=== PATIENT | male | born 1960 | race Caucasian/White ===

== ENCOUNTER 2017-10-20 12:34 | Inpatient (IN) | payer OTHER ==
[~2017-10-20] VITALS: Ht 180.3 cm; Wt 94.3 kg
[~2017-10-20 12:34] MED LIST: ALPRAZOLAM0.5 M4 PO; ANTIVERT25 MG PO; CARDIZEM CD120 MG PO
--- NOTE | 2017-10-20 12:45 | ED CARDIAC/CP/PALPITATIONS ---
History of Present Illness General Chief Complaint: Chest Pain Stated Complaint: CP Source: patient Exam Limitations: no limitations Vital Signs & Intake/Output Vital Signs & Intake/Output Vital Signs Date Time Temp Pulse Resp B/P B/P Pulse O2 O2 Flow FiO2 Mean Ox Delivery Rate 10/20 1420 72 118/69 10/20 1350 98.9 82 18 122/71 95 Room Air 10/20 1300 99.0 10/20 1247 72 24 120/74 95 Room Air Allergies Coded Allergies: NO KNOWN ALLERGIES (11/26/15) NKA PER ANITBIOTIC ORDER SHEET -SJS Reconcile Medications No Known Home Medications Triage Nurses Notes Reviewed? yes Onset: Gradual Duration: better Timing: single episode today Radiation: back HPI: Patient is a 57-year-old male with an unremarkable past medical history presents emergency room saying that last night he was in his normal state of health this morning patient was woke up with mild nausea nausea and which she did eat a half a bagel prior to going to work patient states that while at work symptoms still persisted where he felt cold and clammy patient states that he drank a seltzer water and had acute onset approximately 15 minutes later of substernal chest and throat burning sensation patient then subsequently had chest tightness with intermittent back pain described as "shock" symptoms patient took Tums prior to arrival with no relief of symptoms, patient states that currently the chest tightness is gone however is still complaining of throat and substernal burning sensation Patient denies any alcohol or tobacco use or illicit drug use Denies any fever chills cough hemoptysis leg swelling shortness of breath or arm pain jaw pain history of DVT or PE Patient does have a family history of cardiac disease (Girma Catalan) Past History Medical History Any Pertinent Medical History? see below for history Neurological: PARESTHESIA Psychiatric: anxiety Endocrine: BORDERLINE DIABETIC Surgical History Surgical History: N Psychosocial History What is your primary language Prydeinig Family History Hx Contributory? No (Girma Catalan) Review of Systems Review of Systems Constitutional: Reports: no symptoms. EENTM: Reports: no symptoms. Respiratory: Reports: see HPI. Cardiovascular: Reports: see HPI. GI: Reports: see HPI, nausea. Genitourinary: Reports: no symptoms. Musculoskeletal: Reports: no symptoms. Skin: Reports: no symptoms. Neurological/Psychological: Reports: no symptoms. Hematologic/Endocrine: Reports: no symptoms. Immunologic/Allergic: Reports: no symptoms. All Other Systems: Reviewed and Negative (Girma Catalan) Physical Exam Physical Exam General Appearance: no apparent distress, alert, comfortable Head: atraumatic Eyes: Bilateral: normal appearance, PERRL. Ears, Nose, Throat: normal pharynx, normal ENT inspection Neck: normal inspection Respiratory: normal breath sounds, chest non-tender, no respiratory distress Cardiovascular: regular rate/rhythm Peripheral Pulses: 2+ radial (R) Gastrointestinal: normal bowel sounds, soft, non-tender Extremities: normal inspection, normal capillary refill Skin: intact, normal color, warm/dry Core Measures ACS in differential dx? Yes CVA/TIA Diagnosis No Sepsis Present: No Sepsis Focused Exam Completed? No (Girma Catalan) Progress Differential Diagnosis: AMI, aortic dissection, atrial fibrillation, cholecystitis, CHF/pulm edema, costochondritis, hyperkalemia, hypovolemia, hyperthyroid, hyperventilation, intracranial hemorrhage, musculoskeletal pain, myocarditis, pancreatitis, pericarditis, pneumonia, pneumothorax, PSVT, pulmonary embolism, PUD/GERD, PVCs/PACs, respiratory failure, sepsis, unstable angina, V-fib/V-Tach, WPW syndrome Plan of Care: Orders Procedure Date/time Status Heart Healthy Diet 10/20 D Active Patient Data 10/20 1543 Active ED Holding Orders 10/20 1542 Active Admit to inpatient 10/20 1542 Active Vital Signs 10/20 1542 Active Code Status 10/20 1542 Active Add-on Test (ER Only) 10/20 1353 Active D-DIMER 10/20 1248 Complete TROPONIN LEVEL 10/20 1245 Complete PARTIAL THROMBOPLASTIN TIME 10/20 1245 Complete PROTHROMBIN TIME 10/20 1245 Complete LACTIC ACID 10/20 1245 Complete D-DIMER 10/20 1245 Complete COMPREHENSIVE METABOLIC PANEL 10/20 1245 Complete CBC WITHOUT DIFFERENTIAL 10/20 1245 Complete TYPE & SCREEN (NOT X-MATCH) 10/20 1245 Complete EKG 10/20 1235 Active Current Medications Sig/Lucas Start time Last Medication Dose Stop Time Status Admin Omeprazole 20 MG DAILY AC 10/20 1631 UNVr 10/20 (Prilosec) 1640 Nitroglycerin 0.4 MG ONCE ONE 10/20 1415 CAN (Nitrostat) 10/20 1416 Laboratory Tests 10/20/17 1545: Lactic Acid Cancelled 10/20/17 1351: D-Dimer High Sensitivty < 200 10/20/17 1245: Anion Gap 14, Estimated GFR > 60, BUN/Creatinine Ratio 22.9, Glucose 111 H, Lactic Acid 1.1, Calcium 9.8, Total Bilirubin 1.0, AST 21, ALT 34, Alkaline Phosphatase 98, Troponin I < 0.01, Total Protein 7.9, Albumin 4.7, Globulin 3.2, Albumin/Globulin Ratio 1.5, PT 11.1, INR 1.02, APTT 30, D-Dimer High Sensitivty < 200, CBC w Diff MAN DIFF ORDERED, RBC 5.18, MCV 86.4, MCH 30.0, MCHC 34.8, RDW 12.6, MPV 9.0, Gran % 86.5 H, Lymphocytes % 9.7 L, Monocytes % 3.6, Eosinophils % 0.1, Basophils % 0.1, Absolute Granulocytes 10.1 H, Absolute Lymphocytes 1.1 L, Absolute Monocytes 0.4, Absolute Eosinophils 0, Absolute Basophils 0, Platelet Estimate ADEQUATE, Normocytic RBCs VERIFIED, Normochromic RBCs VERIFIED Initial examination patient is resting comfortably at bedside EKG indicates status and 73 bpm leather lacer placed patient was prophylactically administered aspirin due to presentation of chest pain due to onset of substernal esophageal and chest burning sensation after drinking seltzer water GI cocktail was first given which he had no change in symptoms 1353 nitroglycerin was administered and will be reevaluated Nitroglycerin was administered patient states that his symptoms were worsened nitroglycerin ointment was GIVEN After nitroglycerin was administered patient did have improvement of his symptoms however still complaining of 4/10 substernal chest burning pain Dr. Knox discussed patient with Dr. Wright who advised patient to be admitted for concerns of angina Discussed admission with patient who is aware Diagnostic Imaging: Viewed by Me: Radiology Read. CXR Impression: no acute abnormality, no infiltrates Initial ED EKG: normal p-waves, normal QRS complex, normal sinus rhythm, 73 BPM, NSR Comments: PATIENT: ADDIE COTTON PRESENT AGE: 57 PATIENT ACCOUNT NO: [id number] : 58 LOCATION: ER ORDERING PHYSICIAN: Girma BEAVERS SERVICE DATE: 10/20/17 EXAM TYPE: RAD - XRY-CHEST XRAY, TWO VIEWS EXAMINATION: CHEST 2 VIEWS CLINICAL INFORMATION: Chest pain. COMPARISON: 11/01/2014. TECHNIQUE: PA and lateral views of the chest were obtained. FINDINGS: The cardiac silhouette is not enlarged. The mediastinal and hilar contours are unremarkable. There are neither pleural effusions nor pneumothoraces. There are no consolidations. The osseous structures are unremarkable. IMPRESSION: No evidence for acute disease. DICTATED BY: Kimo Palma MD DATE/TIME DICTATED:10/20/171519 SENIOR TREASURY ANALYST:AKIL DATE/TIME TRANSCRIBED:10/20/171519 CONFIDENTIAL, DO NOT COPY WITHOUT APPROPRIATE AUTHORIZATION. <Electronically signed in Other Vendor System> SIGNED BY: Kimo Palma MD 10/20/171523 (Girma Catalan) Departure Departure Disposition: STILL A PATIENT Condition: Stable Clinical Impression Primary Impression: Angina at rest Referrals: Omer Figueroa MD (PCP/Family) Departure Forms: Customer Survey General Discharge Information Prescriptions: Current Visit Scripts No Known Home Medications Admission Note Spoke With: Augusto Sparrow MD Documentation of Exam: Documentation of any treatments & extenuating circumstances including Concerns Regarding Discharge (functional status, medication knowledge or non-compliance, living conditions, etc.) that warrant an admission rather than observation: [ Patient requires admission for concerns of persistent angina unrelieved with nitroglycerin patient requires repeat EKG blood work troponin cardiology consultation and telemetry monitoring] (Girma Catalan) PA/ROSS FURNACE OPERATOR Co-Sign Statement Statement: ED Attending supervision documentation- [X] I saw and evaluated the patient. I have also reviewed all the pertinent lab results and diagnostic results. I agree with the findings and the plan of care as documented in the PA's/ROSS FURNACE OPERATOR's documentation. [X] I have reviewed the ED Record and agree with the PA's/ROSS FURNACE OPERATOR's documentation. [] Additions or exceptions (if any) to the PAs/ROSS FURNACE OPERATOR's note and plan are summarized below: [ADMIT FOR TELE, SEIRAL ENZYMES,CARDIOLOGY CONSULTATION] (Abilio CEVALLOS,Narciso Adam) Critical Care Note Critical Care Note Critical Care Time: 30-74 min (Girma Catalan)
[2017-10-20 12:56] LABS: ABSOLUTE BASOPHIL COUNT 0 /CUMM (0.0-0.2); ABSOLUTE EOSINOPHIL COUNT 0 /CUMM (0.0-0.7); ABSOLUTE GRANULOCYTE CT 10.1 /CUMM (1.4-6.5); ABSOLUTE LYMPH COUNT 1.1 /CUMM (1.2-3.4); ABSOLUTE MONOCYTE COUNT 0.4 /CUMM (0.10-0.60); BASOPHIL % 0.1 % (0.0-2.0); EOSINOPHIL % 0.1 % (0-5); HEMATOCRIT 44.8 % (42-52); MEAN CORPUSCULAR HGB CONC 34.8 G/DL (33.0-37.0); MEAN CORPUSCULAR VOLUME 86.4 FL (80.0-94.0); PLATELET COUNT 227 /CUMM (130-400); RBC DISTRIBUTION WIDTH 12.6 % (11.5-14.5); RED BLOOD CELL CT 5.18 /CUMM (4.70-6.10); WHITE BLOOD CELL COUNT 11.7 /CUMM (4.8-10.8)
[2017-10-20 12:59] LABS: GRANULOCYTE % 86.5 % (42.2-75.2)
[2017-10-20 13:04] LABS: PT 11.1 SEC (9.4-12.5); PTT 30 SEC (25-37)
--- NOTE | 2017-10-20 15:24 | RADIOLOGY REPORT ---
EXAMINATION: CHEST 2 VIEWS CLINICAL INFORMATION: Chest pain. COMPARISON: 11/01/2014. TECHNIQUE: PA and lateral views of the chest were obtained. FINDINGS: The cardiac silhouette is not enlarged. The mediastinal and hilar contours are unremarkable. There are neither pleural effusions nor pneumothoraces. There are no consolidations. The osseous structures are unremarkable. IMPRESSION: No evidence for acute disease.
--- NOTE | 2017-10-20 15:50 | History & Physical ---
JorgeExline 10/20/17 1549: General Information and HPI MD Statement: I have seen and personally examined ADDIE COTTON and documented this H&P. The patient is a 57 year old M who presented with a patient stated chief complaint of chest discomfort, nausea and sweating since this morning. []. Source of Information: patient, old records Exam Limitations: no limitations History of Present Illness: 57 YO M with PMH of acid reflex, anxiety, paresthesia, prediabetic not on any medication, osteoarthritis, left knee meniscal tear status post repair and colonoscopy in 2007 for rectal bleeding came to ED with chief complaint of chest discomfort, nausea and sweating since this morning. Patient reported that he was in his usual state of health since this morning when he woke up he noticed nausea and sweating. According to patient he took the shower and went to his work where he drank seltzer water and he noticed retrosternal burning sensation that's coming to his throat. He took 2 tums but that didn't relieve his burning sensation. Later on patient noticed tightness around his lower chest and also shooting pain around his neck. That tightness was 5/10, nonradiating, intermittent, not aggravated with exertion and relieved a little bit with rest. Patient also noticed having nausea along with this lower chest tightness. Patient decided to leave his work and came to ED for further evaluation. Patient denied any central chest pain, shortness of breath, palpitation, increase in chest tightness with breathing, recent upper respiratory tract infection, lightheadedness, vomiting, abdominal pain, diarrhea and dysuria. Patient also noticed having bloating sensation in his belly. Patient reported that he ate hot dogs and fried chips last night before he slept. Patient reported that similar episode he noticed 3 years back and he took Tums at that time and that relieved his burning sensation. Patient also endorsed that he had episode of palpitation 2 years back and since then he is seeing Dr. Wright. He had 24-hour Holter monitor but nothing was diagnosed at that point. He also had stress test in 2015 that was negative. Last time he saw Dr. Wright in January 2017. Patient is also seeing Dr. Arias for paresthesia around his face and in the hands. Patient attributed this paresthesia to anxiety. According to patient he received nitroglycerin tablet in ED that worsened his retrosternal burning sensation. ED course: Vitals: Temperature 99.0, pulse 72, respiratory rate 24, blood pressure 120/74, oxygen saturation 95% room air. Labs: WBC count 11.7, hemoglobin 15.6, hematocrit 44.8, platelet count 227, sodium 139, potassium 4.3, BUN 16, creatinine 0.7, anion gap 14, BUNs/creatinine ratio 22.9, troponin less than 0.01, albumin 4.7, globulin 3.2, PT 11.1, INR 1.02, d-dimer less than 200 Patient received aspirin in ED also nitroglycerin patch and pill. He also received GI cocktail. Allergies/Medications Allergies: Coded Allergies: NO KNOWN ALLERGIES (11/26/15) NKA PER ANITBIOTIC ORDER SHEET -SJS Past History Travel History Traveled to [place] past 21 day No Medical History Neurological: PARESTHESIA EENT: NONE Cardiovascular: NONE Respiratory: NONE Gastrointestinal: NONE Hepatic: NONE Renal: NONE Musculoskeletal: NONE Psychiatric: anxiety Endocrine: BORDERLINE DIABETIC Surgical History Surgical History: N Review of Systems Review of Systems Constitutional: Reports: no symptoms. EENTM: Reports: no symptoms. Cardiovascular: Reports: see HPI. Respiratory: Denies: cough, orthopnea, short of breath, sputum production. GI: Denies: bloating, nausea. Genitourinary: Denies: dysuria, hematuria. Musculoskeletal: Reports: see HPI. Neurological/Psychological: Reports: no symptoms. Exam & Diagnostic Data Last 24 Hrs of Vital Signs/I&O Vital Signs Date Time Temp Pulse Resp B/P B/P Pulse O2 O2 Flow FiO2 Mean Ox Delivery Rate 10/20 1420 72 118/69 / 1350 98.9 82 18 122/71 95 Room Air 04/ 1300 99.0 04/ 1247 72 24 120/74 95 Room Air Intake & Output 10/20 1600 10/20 0800 04/ 0000 Intake Total 10 Output Total Balance 10 Intake, IV 10 Patient 212 lb Weight Weight Reported by Patient Measurement Method Physical Exam General Appearance Alert, Oriented X3, Cooperative, No Acute Distress Skin No Rashes Skin Temp/Moisture Exam: Warm/Dry Sepsis Skin Exam (color): Normal for Ethnicity HEENT Atraumatic, PERRLA, EOMI Neck Supple Cardiovascular Normal S1, Normal S2 Lungs Clear to Auscultation Abdomen Soft, No Tenderness Neurological Normal Speech, Strength at 5/5 X4 Ext, Normal Tone, Sensation Intact Extremities No Edema Last 24 Hrs of Labs/Froylan: Laboratory Tests 10/20/17 1545: Lactic Acid Cancelled 10/20/17 1351: D-Dimer High Sensitivty < 200 10/20/17 1245: Anion Gap 14, Estimated GFR > 60, BUN/Creatinine Ratio 22.9, Glucose 111 H, Lactic Acid 1.1, Calcium 9.8, Total Bilirubin 1.0, AST 21, ALT 34, Alkaline Phosphatase 98, Troponin I < 0.01, Total Protein 7.9, Albumin 4.7, Globulin 3.2, Albumin/Globulin Ratio 1.5, PT 11.1, INR 1.02, APTT 30, D-Dimer High Sensitivty < 200, CBC w Diff MAN DIFF ORDERED, RBC 5.18, MCV 86.4, MCH 30.0, MCHC 34.8, RDW 12.6, MPV 9.0, Gran % 86.5 H, Lymphocytes % 9.7 L, Monocytes % 3.6, Eosinophils % 0.1, Basophils % 0.1, Absolute Granulocytes 10.1 H, Absolute Lymphocytes 1.1 L, Absolute Monocytes 0.4, Absolute Eosinophils 0, Absolute Basophils 0, Platelet Estimate ADEQUATE, Normocytic RBCs VERIFIED, Normochromic RBCs VERIFIED Assessment/Plan Assessment: 57 YO M with PMH of acid reflex, anxiety, paresthesia, prediabetic not on any medication, osteoarthritis, left knee meniscal tear status post repair and colonoscopy in 2007 for rectal bleeding came to ED with chief complaint of chest discomfort, nausea and sweating since this morning. We'll admit the patient on telemetry floor to rule out any ischemic cardiac injury. Chest pain: -Patient has atypical chest pain symptoms but considering his significant family history we will keep the patient on telemetry floor to rule out any ischemic cardiac injury. -Serial EKG and troponins -Cardiac consult -We will start aspirin -We will start Lipitor -Lipid panel -Echocardiogram in a.m. GERD: -Considering patient's symptoms it's more related to acid reflux as patient has past medical history. -We will start omeprazole -Elevation of the head end of the bed -Avoid spicy and fatty food. Leukocytosis: -Likely reactive -we will follow cbc in am. History of prediabetes: -HbA1c History of anxiety: -Not on any medication DVT prophylaxis: Mechanical and subcutaneous Lovenox CODE STATUS: Full code As Ranked By This Provider Problem List: 1. Chest pain Core Measures/Misc (04/03) Acute Coronary Syndrome ACS Diagnosis: No Congestive Heart Failure Congestive Heart Failure Diagnosis No Cerebrovascular Accident CVA/TIA Diagnosis: No VTE (View Protocol) VTE Risk Factors Age>40 No Mechanical VTE Prophylaxis d/t N/A MechProphylax Ordered No VTE Pharm Prophylaxis d/t NA PharmProphylax ordered Sepsis (View protocol) Sepsis Present: No [facility] 1720: General Information and HPI Allergies/Medications Home Med list Omeprazole 20 MG CAPSULE.DR Razo CAP PO DAILY GERD Resident Review Statement Resident Statement: examined this patient, discussed with application internship, agreed with application internship, discussed with family Other Findings: Mr. Cotton is a 57-year-old male with past medical history significant for borderline diabetes not on any medication, anxiety associated with episodic paresthesia was at some point on Xanax, who presented to ED with chief complaint of burning chest pain for 1 day. Patient reported that after working up this morning he feels nauseated but no vomiting, and went to work and had some seltzer water. After drinking that he started to have burning sensation in his chest associated with bilateral lower rib tightness not associated with shortness of breath, palpitation, pressure or sharp chest pain, no nausea or vomiting. Patient reported having similar burdening chest pain in the past that improved with Tums however this time he tried times without any relieving of his symptoms. In 2016 patient had episodic palpitation and had a follow-up with Dr. Wright, reported having Holter monitor, nuclear stress test and echocardiogram with negative results. Patient got anxious today because of the bilateral lower chest tightness and decided to come to ED for evaluation given the fact that has positive family history of HI. Patient reported having fried food last night. Initial troponin negative, EKG CT interval 204, QTc 401, single mild ST depression in lead V4 . Problem list #Chest burning sensation #GERD #Anxiety Plan -Admit to telemetry floor -Tropes and EKG 2 -Vital signs every shift -Protonix 20 mg before meals daily -CBC and BEP in a.m. -Cardiology evaluation -DVT prophylaxis Lovenox -Diet regular -Code full
--- NOTE | 2017-10-20 17:24 | Cons- Cardiology ---
General Information and HPI Consulting Request Date of Consult: 10/20/17 Requested By: Augusto Sparrow MD History of Present Illness: Herb is a 57 year old male with a family history of coronary artery disease. He is at least moderately active and at his baseline he is active is free of any chest pain, pressure, tightness, shortness of breath or lightheadedness. This morning, the patient noted nausea followed by diaphoresis. He subsequently felt a midsternal burning sensation along with discomfort bilaterally in his lower chest. The discomfort radiated to his back. The discomfort is now in his upper mid chest at the base of his throat.There is no clear relief by NTG. Otherwise he denies shortness of breath, lightheadedness or palpitations. To review this patient's prior history, Herb has noted some minor palpitations for about eight years but they typically only occured on rare occasion. A couple visits ago he reported having much more prominent palpitations but they seem to have almost completely abated. He previously complained of fleeting discomfort in a variety of different areas such as his foot to his face. Neurology has not been able to discover a reason for these symptoms. In may be recalled that when this patient had his prior palpitationsthey were described as intermittent, palpitations that were associated with mild shortness of breath and lightheadedness. They tend to be short runs that are associated with neck pulsation and are described as being fast and even. He did have resolution soon after drinking a glass of water. He had an echocardiogram that showed a normal EF of 67% with moderate aortic regurgitation, mild to moderate pulmonic regurgitation and borderline LVH. His stress test is negative for ischemia. Allergies/Medications Allergies: Coded Allergies: NO KNOWN ALLERGIES (11/26/15) NKA PER ANITBIOTIC ORDER SHEET -[facility] Home Med List: No Known Home Medications Review of Systems Review of Systems: A review of systems is unremarkable. Past History Travel History Traveled to [place] past 21 day No Medical History Neurological: PARESTHESIA EENT: NONE Cardiovascular: NONE Respiratory: NONE Gastrointestinal: NONE Hepatic: NONE Renal: NONE Musculoskeletal: NONE Psychiatric: anxiety Endocrine: BORDERLINE DIABETIC Surgical History Surgical History: none Exam & Diagnostic Data Vital Signs and I&O Vital Signs Date Time Temp Pulse Resp B/P B/P Pulse O2 O2 Flow FiO2 Mean Ox Delivery Rate 10/20 2033 98.6 65 20 110/50 95 Room Air 1808 95 Room Air / 1736 99.6 10/20 1714 99.6 84 18 112/67 95 Room Air 04/ 1420 72 118/69 04/05 1350 98.9 82 18 122/71 95 Room Air 04/05 1300 99.0 / 1247 72 24 120/74 95 Room Air Intake & Output 10/20 1600 10/20 0800 10/20 0000 10/19 1600 10/19 0800 10/19 0000 Intake Total 10 Output Total Balance 10 Intake, IV 10 Patient 212 lb Weight Weight Reported by Patient Measurement Method Physical Exam: General: WD/WN male in NAD; alert and oriented x3 HEENT: NC//AT, PERRL, EOMI Neck: no JVD, no carotid bruits Heart: RRR w/o murmur Lungs: clear bilaterally Abdomen: soft, NT, +ve bowel sounds Extremities: no edema Assessment/Plan Assessment/Plan * This patient has chest discomfort that is atypical in location without any exacerbation by physical exertion or convincing relief by NTG. We will monitor him on telelmetry and will rule him out for an SD. If he has recurrent chest pain then we will begin IV heparin and will add NTG paste 1/2 in Q 6 hours. If the patient rules out and is pain free then we will discharge with a plan for outpatient stress testing. If his chest discomfort persists then stress testing will be done as an inpatient. * Repeat the patient's CBC. * Continue usual home medications. Consult Acknowledgment - Thank you for your consult request.
--- NOTE | 2017-10-20 17:29 | PN- Att Addend ---
Attending Addendum Attending Brief Note Patient seen and examined. Pleasant 57-year-old male with no significant medical history. Presents to the emergency room complaining of retrosternal discomfort which she describes as burning sensation. Also treated with symptoms of bilateral lower chest wall pain. Symptoms began suddenly this morning. Did not but after taking Tums. Acute emergency room for further evaluation with symptoms persisted despite nitroglycerin and PPI therapy. EKG showed normal sinus rhythm with no obvious ischemic changes. His first troponin Was negative. Patient reports family history of coronary artery disease wasreferred to the medical service for further evaluation and management. On examination is resting comfortably multivitamin acute distress. Chest pain is not reproducible. Heart sounds are regular. Lungs are clear bilaterally. Patient reports similar pain in the past that improved with the use of Tums. He admits to having a heavy meal last night. He describes sensation as a burning sensation. Problems: 1. Chest pain; likely related to GERD. Recommendations: -Trend cardiac enzymes. -Obtain echocardiogram to rule out any wall motion abnormality. -Patient had a nuclear stress test 3 years ago for similar complaints that was negative. 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 -Cardiac enzymes are negative and following evaluation by his elevator operator freight service tomorrow he may be discharged home with recommendations to follow with the gastroenterology service in 2 weeks if symptoms persist despite PPI therapy. -He is leukocytosis is likely reactive. Repeat CBC in a.m.
[2017-10-20 20:34] VITALS: BP 110/50
[2017-10-20 23:50] VITALS: BP 104/56
[2017-10-21 06:32] VITALS: BP 122/62
--- NOTE | 2017-10-21 06:43 | PN- Housestaff ---
[facility] Subjective Follow-up For: Atypical chest pain GERD Tele-Events Since Last Visit: Sinus rhythm with heart rate 6591 Subjective: Patient remained afebrile overnight. Seen and examined this morning. Denied any chest pain, short of breath, nausea, vomiting, chills, fever, abdominal pain and dysuria. Patient reported having acid reflux last night and it was relieved with TUMS. Review of Systems Constitutional: Denies: chills, fever, weakness. EENTM: Reports: no symptoms. Cardiovascular: Denies: chest pain, orthopena, palpitations. Respiratory: Denies: cough, short of breath. Gastrointestinal: Denies: bloating, diarrhea, nausea. Genitourinary: Reports: no symptoms. Musculoskeletal: Reports: no symptoms. Neurological/Psychological: Reports: no symptoms. Objective Last 24 Hrs of Vital Signs/I&O Vital Signs Date Time Temp Pulse Resp B/P B/P Pulse O2 O2 Flow FiO2 Mean Ox Delivery Rate 10/21 0632 98.6 64 20 122/62 95 Room Air 04/05 2350 98.2 67 12 104/56 94 Room Air 04/05 2034 98.6 65 20 110/50 95 Room Air 04/05 1808 95 Room Air 04/05 1736 99.6 04/05 1714 99.6 84 18 112/67 95 Room Air 04/05 1420 72 118/69 04/05 1350 98.9 82 18 122/71 95 Room Air 04/05 1300 99.0 04/05 1247 72 24 120/74 95 Room Air Intake & Output / 1600 /06 0800 04/06 0000 Intake Total 110 320 Output Total 500 Balance -390 320 Intake, Oral 110 320 Output, Urine 500 Patient 208 lb Weight Weight Bed scale Measurement Method Physical Exam General Appearance: Alert, Oriented X3, Cooperative Skin: No Rashes Skin Temp/Moisture Exam: Warm/Dry Sepsis Skin Exam (color): Normal for Ethnicity HEENT: Atraumatic, PERRLA, EOMI Neck: Supple Cardiovascular: Normal S1, Normal S2 Lungs: Clear to Auscultation Abdomen: Soft, No Tenderness Neurological: Normal Speech, Strength at 5/5 X4 Ext, Normal Tone, Sensation Intact Extremities: No Edema Assessment/Plan Assessment: 57 YO M with PMH of acid reflex, anxiety, paresthesia, prediabetic not on any medication, osteoarthritis, left knee meniscal tear status post repair and colonoscopy in 2007 for rectal bleeding came to ED with chief complaint of chest discomfort, nausea and sweating since this morning. We are following the patient on telemetry floor for following problems: Atypical Chest pain: -Patient has atypical chest pain symptoms but considering his significant family history we will keep the patient on telemetry floor to rule out any ischemic cardiac injury. -EKGs and trops are Negative -Cardiology will follow the patient as outpatient for stress test. -Echocardiogram in a.m. GERD: -Considering patient's symptoms it's more related to acid reflux as patient has past medical history. -We will start omeprazole -Elevation of the head end of the bed -Avoid spicy and fatty food. Leukocytosis: -Likely reactive -We'll see count is back to normal History of prediabetes: -HbA1c 5.9 History of anxiety: -Not on any medication DVT prophylaxis: Mechanical and subcutaneous Lovenox CODE STATUS: Full code Problem List: 1. Chest pain Pain Ratin Pain Location: none Pain Goal: Remain pain free Pain Plan: pain pathway Tomorrow's Labs & Rationales: none Juan José Smiley MD 10/21/17 1116: Attending MD Review Statement Attending Statement Attending MD Statement: examined this patient, discuss w/resident/PA/[employer], agreed w/resident/PA/[employer], reviewed EMR data (avail) Attending Assessment/Plan: Symptoms have resolved. Yesterday felt epigastric and rib discomfort, but has had no symptoms since. EKG and troponin are negative. Seen by cardiology. Patient is stable for discharge home on Omeprazole with outpatient cardiology follow up.
[2017-10-21 08:05] LABS: ABSOLUTE BASOPHIL COUNT 0 /CUMM (0.0-0.2); ABSOLUTE EOSINOPHIL COUNT 0 /CUMM (0.0-0.7); ABSOLUTE LYMPH COUNT 1.3 /CUMM (1.2-3.4); ABSOLUTE MONOCYTE COUNT 0.5 /CUMM (0.10-0.60); BASOPHIL % 0.2 % (0.0-2.0); EOSINOPHIL % 0.7 % (0-5); HEMATOCRIT 40.9 % (42-52); MEAN CORPUSCULAR HGB 30.5 PG (27.0-31.0); MEAN CORPUSCULAR HGB CONC 34.6 G/DL (33.0-37.0); MEAN CORPUSCULAR VOLUME 88.1 FL (80.0-94.0); PLATELET COUNT 195 /CUMM (130-400); RED BLOOD CELL CT 4.64 /CUMM (4.70-6.10); WHITE BLOOD CELL COUNT 5.9 /CUMM (4.8-10.8)
--- NOTE | 2017-10-21 08:52 | PN- Student ---
Subjective Subjective: 57 y/o M with PMHx of acid reflux, anxiey, paresthesia, prediabetic (without any medication), left knee meniscal tear s/p repair and colonoscopy in 2007 for rectal bleeding. Patient presented to the ED with a chief complain of chest discomfort. Patient was in his usual state of health until the morning [employer], when the wake up with nausea. During the day, the nausea resolved but in the way to the work he experienced chest discomfort, located on the middle of the chest with duration between 10 -15 minutes and described as burning sensation and "huggin like pressure in my rib cage". Patient reported radiation to the left shoulder, severity of 5/10, and associated symptoms of nausea without agraviation of the pain with excertion. Denied fever, vomiting, diarrhea, SOB, metalic taste in the mouth. During the ED workup he received nitroglycerin tablets which didnot resolved the pain and made it worse. Also, during the day patient noticed bloating sensation and passing more gasses than usual. The night before the onser of the pain he ate hotdogs and chips before bedtime. He has experienced this pain befor and had resolved with antiacids medicationn but has never expirienced shouldr pain. This time the antiacid medication did not resolved the pain. patient is been seen by Dr. Wright for card eval and workup. Last time seen in January 2017. Objective Objective: Vitals: t= 98.9 HR= 72 BP= 118/69 O2 Sat= 95 PE: General= alert, oriented x3, without any distress HEET= no lymphadenopathy, no ulcers in the mouth, good dental ingine Lungs: clean bilateral, no added sounds CVS= regular rate rythm, no murmurs S3 or S4 Abdomen= no scar discolorations or hernias visible. Present bowel sounds. No tender, non distender, no masses. Results Results: Laboratory Tests 10/21/17 0655: Anion Gap 10, Estimated GFR > 60, BUN/Creatinine Ratio 22.9, CBC w Diff NO MAN DIFF REQ, RBC 4.64 L, MCV 88.1, MCH 30.5, MCHC 34.6, RDW 13.0, MPV 9.0, Gran % 68.0, Lymphocytes % 21.8, Monocytes % 9.3, Eosinophils % 0.7, Basophils % 0.2, Absolute Granulocytes 4.0, Absolute Lymphocytes 1.3, Absolute Monocytes 0.5, Absolute Eosinophils 0, Absolute Basophils 0 10/20/17 1934: Troponin I < 0.01 10/20/17 1545: Lactic Acid Cancelled 10/20/17 1351: D-Dimer High Sensitivty < 200 10/20/17 1245: Anion Gap 14, Estimated GFR > 60, BUN/Creatinine Ratio 22.9, Glucose 111 H, Hemoglobin A1c Pending, Lactic Acid 1.1, Calcium 9.8, Phosphorus 3.7, Magnesium 1.9, Total Bilirubin 1.0, AST 21, ALT 34, Alkaline Phosphatase 98, Troponin I < 0.01, Total Protein 7.9, Albumin 4.7, Globulin 3.2, Albumin/Globulin Ratio 1.5, Vitamin B12 361, TSH 0.859, PT 11.1, INR 1.02, APTT 30, D-Dimer High Sensitivty < 200, CBC w Diff MAN DIFF ORDERED, RBC 5.18, MCV 86.4, MCH 30.0, MCHC 34.8, RDW 12.6, MPV 9.0, Gran % 86.5 H, Lymphocytes % 9.7 L, Monocytes % 3.6, Eosinophils % 0.1, Basophils % 0.1, Absolute Granulocytes 10.1 H, Absolute Lymphocytes 1.1 L, Absolute Monocytes 0.4, Absolute Eosinophils 0, Absolute Basophils 0, Platelet Estimate ADEQUATE, Normocytic RBCs VERIFIED, Normochromic RBCs VERIFIED Assessment/Plan Assessment: A: 57 y/o M with PMHx of acid reflux and positive FMHx for heart attack. Based on the troponin and EKG an ischemic heart diseases is unlikely, but further investigations are recommended. History and physical examination are consistent with acid reflux. Plan: Chest pain: -monitor troponin -cont. telemetry -Aspirin and lipitor based on cardiovascular risk -ECHO Acid Reflux: -Omeprazole -avoid spicy food, caffeine, alcohol Prediabetic: -HbA1C for prediabetic Leukocytosis: -probably reactive -monitor with CBC
--- NOTE | 2017-10-21 10:23 | Discharge Summary ---
Visit Information Visit Dates Admission Date: 10/20/17 Discharge Date: 10/21/17 Hospital Course Course Attending Physician: Juan José Smiley MD Primary Care Physician: Omer Figueroa MD Hospital Course: 57 YO M with PMH of acid reflex, anxiety, paresthesia, prediabetic not on any medication, osteoarthritis, left knee meniscal tear status post repair and colonoscopy in 2007 for rectal bleeding came to ED with chief complaint of chest discomfort, nausea and sweating since this morning. ED course: Vitals: Temperature 99.0, pulse 72, respiratory rate 24, blood pressure 120/74, oxygen saturation 95% room air. Labs: WBC count 11.7, hemoglobin 15.6, hematocrit 44.8, platelet count 227, sodium 139, potassium 4.3, BUN 16, creatinine 0.7, anion gap 14, BUNs/creatinine ratio 22.9, troponin less than 0.01, albumin 4.7, globulin 3.2, PT 11.1, INR 1.02, d-dimer less than 200 Patient received aspirin in ED also nitroglycerin patch and pill. He also received GI cocktail. Atypical Chest pain: Patient was admitted with atypical chest pain. Serial EKGs and troponins were negative. Cardiology consult was obtained. Cardiology recommended to do outpatient stress test. Patient was instructed to follow cardiology as outpatient for further recommendations and for cardiac stress test. Patient remained asymptomatic during hospital stay. GERD: Patient symptoms were more explainable with GERD. Patient was treated with PPI and Tums. Patient was instructed to avoid spicy and fatty foods. He will continue PPI for GERD and he was instructed to follow primary care physician. Leukocytosis: His leukocytosis was reactive that was monitored. Before discharge his WBC count came back to normal. History of prediabetes: His HbA1c was 5.9. Patient was instructed to follow primary care physician for further recommendations. History of anxiety: Was not on any medications. DVT prophylaxis: Mechanical and subcutaneous Lovenox CODE STATUS: Full code Allergies: Coded Allergies: NO KNOWN ALLERGIES (11/26/15) NKA PER ANITBIOTIC ORDER SHEET -SJS Pertinent Lab Results: Chest x-ray on 10/20/2017: IMPRESSION: No evidence for acute disease. WBC count 5.9, hemoglobin 14.1, hematocrit 40.9, platelet count 195, sodium 137, potassium 4.1, BUN 16, creatinine 0.7, HbA1c 5.9 Disposition Summary Disposition Principal Diagnosis: Atypical chest pain GERD Additional Diagnosis: History of anxiety Discharge Disposition: home or self care Discharge Instructions General Discharge Information Code Status: Full Code Patient's Diet: Regular diet Patient's Activity: Self-limited Follow-Up Instructions/Appts: Follow up with Primary care physician in one week Follow-up with him her facilities engineer in 1 week and discuss what the cardiac stress test. Medications at Discharge Discharge Medications: Start taking the following new medications: Omeprazole (Omeprazole) 20 MG CAPSULE. 1 Capsule ORAL DAILY Qty = 30 No Refills Comments: Last Taken:10/21/16 Time:0630 Copies To: Carolina CEVALLOS,Omer Wright MD PHD,Gallo Metzger
[2017-10-21] MEDS ORDERED: OMEPRAZOLE20 M2 PO (10:24)
--- NOTE | 2017-10-21 10:27 | Patient Discharge Instructions ---
Discharge Instructions General Discharge Information You were seen/treated for: Atypical chest pain GERD Watch for these problems: Chest pain, shortness of breath, lightheadedness, palpitation, indigestion and abdominal pain. If you experience any of these symptoms please call to her primary care physician or come to ED. Special Instructions: -Follow-up with your primary care physician in one week. -Follow up with your physician practice administrator in 1 week and discuss about outpatient cardiac stress test. Diet Recommended Diet: Regular Activity Activity Self Limited: Yes Acute Coronary Syndrome Inclusion Criteria At DC or during hospital stay patient has or had the following: ACS DIAGNOSIS No Discharge Core Measures Meds if any: Prescribed or Continued at Discharge Meds if any: NOT Prescribed or Continued at Discharge Congestive Heart Failure Inclusion Criteria At DC or during hospital stay patient has or had the following: CHF DIAGNOSIS No Discharge Core Measures Meds if any: Prescribed or Continued at Discharge Meds if any: NOT Prescribed or Continued at Discharge Cerebrovascular accident Inclusion Criteria At DC or during hospital stay patient has or had the following: CVA/TIA Diagnosis No Discharge Core Measures Meds if any: Prescribed or Continued at Discharge Meds if any: NOT Prescribed or Continued at Discharge Venous thromboembolism Inclusion Criteria VTE Diagnosis No VTE Type NONE VTE Confirmed by (Test) NONE Discharge Core Measures - Per Current guidelines, there needs to be overlap - treatment for the first 5 days of Warfarin therapy. - If discharged on Warfarin prior to 5 days of - overlap therapy, the patient will need to be - assessed for post discharge needs including - *Post discharge parental anticoagulation - *Warfarin and/or parental anticoagulation education - *Follow up date to check INR post discharge At least 5 days overlap therapy as Inpatient No Meds if any: Prescribed or Continued at Discharge Note: Overlap Therapy is Warfarin and Anticoagulant Meds if any: NOT Prescribed or Continued at Discharge
--- NOTE | 2017-10-21 10:50 | PN- Cardiology ---
Subjective Subjective: * Mild chest discomfort that was exacerbated by eating. Overall her feels improved. * sinus rhythm * normal cardiac enzymes * normalized WBC count Objective Vital Signs and I&Os Vital Signs Date Time Temp Pulse Resp B/P B/P Pulse O2 O2 Flow FiO2 Mean Ox Delivery Rate 10/21 0632 98.6 64 20 122/62 95 Room Air 04/05 2350 98.2 67 12 104/56 94 Room Air 04/05 2034 98.6 65 20 110/50 95 Room Air 04/05 1808 95 Room Air 04/05 1736 99.6 04/05 1714 99.6 84 18 112/67 95 Room Air 04/05 1420 72 118/69 04/05 1350 98.9 82 18 122/71 95 Room Air 04/05 1300 99.0 04/05 1247 72 24 120/74 95 Room Air Intake & Output 10/21 1600 04/06 0800 04/06 0000 04/ 1600 04/ 0800 04/05 0000 Intake Total 110 320 10 Output Total 500 Balance -390 320 10 Intake, IV 10 Intake, Oral 110 320 Output, Urine 500 Patient 208 lb 212 lb Weight Weight Bed scale Reported by Patient Measurement Method Physical Exam: General: WD/WN male in NAD; alert and oriented x3 Neck: no JVD, no carotid bruits Heart: RRR w/o murmur Lungs: clear bilaterally Abdomen: soft, NT, +ve bowel sounds Extremities: no edema Assessment/Plan Assessment/Plan * Herb feels improved. He did have a prolonged episode of atypical discomfort yesterday without electrocardiographic changes or rise in cardiac enzymes. He now feels much improved on antacid therapy although he did feel some slight discomfort after eating this morning. I have a very low suspicion of angina or myocardial ischemia. It is reasonable to discharge this patient to home on his usual drug regimen and a PPI. Follow up in the office in a week or two. Continue telemetry? No
== END 2017-10-21 12:20 | DRG 313 ==
LOC: ERH 12:34 → 1NO 15:42 → ERHI 15:42 → EDBEDREQ 16:36 → ENRESERV 16:42 → ENTRNSPT 17:30 → EDTRNSPTSTS 17:49 → 1NO 17:59 → CMPTRNSPT 18:06 → 1NO 10-21 07:48 → ENPENDDIS 10-21 11:42 → 1NO 10-21 12:20
PROVIDERS: Physician Assistant; Student in an Organized Health Care Education/Training Program
DX: R07.89 Other chest pain (principal); D72.829 Elevated white blood cell count, unspecified; F41.9 Anxiety disorder, unspecified; K21.9 Gastro-esophageal reflux disease without esophagitis; R20.2 Paresthesia of skin; R73.03 Prediabetes; M19.90 Unspecified osteoarthritis, unspecified site
CPT/HCPCS: 1NSP; 36415; 36592; 71046; 82436; 93005; 93010; 99291; J1650; J3490